=== PATIENT | female | born 1950 | race Caucasian/White ===

== ENCOUNTER 2023-08-05 06:26 | Day surgery (SDC) | payer MEDICARE ==
[2023-08-04 13:40] VITALS: BMI 27.4
[~2023-08-05 06:26] MED LIST: DEXTROSE 50% FS SCH; ENOXAPARIN FS SCH; EPINEPHRINE FS SCH; [UNRECOGNIZED DRUG - OTHER] FS SCH
[2023-08-05] MEDS ORDERED: PHENYLephrine 2.5% Ophth Soln 15 ml Bottle ONE (07:12)
[2023-08-05] MEDS ORDERED: Cyclopentolate 1% Opth Drop 2 ML BOT ONE (07:12)
== END 2023-08-05 07:55 | disposition short-term general hospital (02) ==
LOC: SDC 06:26
PROVIDERS: ATTEND Ophthalmology Retina Specialist
DX: H35.342 Macular cyst, hole, or pseudohole, left eye (principal); Z53.8 Procedure and treatment not carried out for other reasons
CPT/HCPCS: J0171; J1650

== ENCOUNTER 2023-08-05 08:04 | Inpatient (IN) | payer MEDICARE ==
[2023-08-05] MEDS ORDERED: Labetalol HCl 100 MG/20 ML VIAL ONE (08:37)
[2023-08-05 08:42] LABS: #Eosinphils 0.1 thou/uL (0.0-0.7); #Neutrophils 9.9 thou/uL (1.40-6.50); %Basophils 0.3 % (0.0-1.0); %Eosinophils 0.8 % (0.0-10.0); %Lymphocytes 15.8 % (21.0-51.0); %Monocytes 7.7 % (0.0-10.0); %Neutrophils 74.9 % (42.0-75.0); Hematocrit 47.5 % (36.0-47.0); Hemoglobin 15.4 g/dL (12.0-16.0); Mean Corpuscular HGB CONC 32.4 g/dL (32.0-36.0); Mean Corpuscular Volume 95.6 fl (78.0-98.0); Mean Platelet Volume 10.5 fL (7.4-10.4); Platelet Count 576 10x3/uL (130-400); RBC Distribution Width 15.8 % (11.5-14.5); Red Blood Cell (RBC) Count 4.97 mill/uL (4.20-5.40); White Blood Cell (WBC) Count 13.2 10x3/uL (4.8-10.8)
[2023-08-05 09:06] LABS: ALT (SGPT) 11 U/L (8-55); AST (SGOT) 17 U/L (5-34); Albumin 4.3 g/dL (3.4-4.8); Alkaline Phosphatase 67 U/L (40-110); Anion Gap 11 mmol/L (10-20); BUN (Urea Nitrogen) 13 mg/dL (9.8-20.1); Bilirubin, Total 0.4 mg/dL (0.2-1.2); Calc. Creatinine Clearance 0 mL/min (70-130); Carbon Dioxide 24 mmol/L (23-31); Chloride 105 mmol/L (98-107); Estimated GFR 68; Globulin 3.4 g/dL (2.4-3.5); Glucose 122 mg/dL (80-115); Protein, Total 7.7 g/dL (5.8-8.1); Sodium 136 mmol/L (136-145)
[2023-08-05 09:13] LABS: Troponin I 3.106 ng/mL (< 0.028)
[2023-08-05] MEDS ORDERED: Nitroglycerin 50 MG/250 ML BOT 250 ML ONE (09:27)
[2023-08-05] MEDS ORDERED: Aspirin Chewable 81 MG TAB ONE (09:27)
[2023-08-05] MEDS ORDERED: Heparin 25,000 units/D5W 500 ML ONE (09:27)
[2023-08-05 10:25] LABS: PTT 35.4 sec (22.9-36.1)
[2023-08-05] MEDS ORDERED: Acetaminophen 325 MG TAB PO PRN (10:54)
[2023-08-05] MEDS ORDERED: Heparin 25,000 units/D5W 500 ML IVPB SCH (11:15)
[2023-08-05] MEDS ORDERED: Nitroglycerin 50 MG/250 ML BOT 250 ML IVPB SCH (11:15)
[2023-08-05 11:29] LABS: Critical Call Chem Troponin I RESULT DECREASING; Troponin I 2.818 ng/mL (< 0.028)
[2023-08-05 14:28] LABS: Cardiac Risk 4.7 (Less than 4.5)
[2023-08-05 14:30] LABS: Hemoglobin A1c 5.4 % (4.0-6.0)
[2023-08-05 15:06] LABS: Critical Call Chem Troponin I RESULT DECREASING; Troponin I 2.629 ng/mL (< 0.028)
[2023-08-05] MEDS ORDERED: Lisinopril 20 MG TAB PO SCH (15:30)
[2023-08-05] MEDS ORDERED: Communication Order-Pharmacy FS SCH (18:30)
[2023-08-05] MEDS: Sodium Chloride 0.9% 1,000 ML IV SCH (19:05)
[2023-08-05] MEDS: Heparin 10,000 UNITS/ 10 ML VIAL SLOW IVP SCH (19:43)
[2023-08-05] MEDS: Rosuvastatin 20 MG TAB PO SCH (20:05)
[2023-08-05] MEDS: niCARdipine 25 MG in Sodium Chloride 0.9% 250 ML 250 ML IVPB SCH ×2 (20:17→22:21)
[2023-08-06] MEDS: Heparin 10,000 UNITS/ 10 ML VIAL SLOW IVP SCH ×3 (01:32→19:56)
[2023-08-06] MEDS: niCARdipine 25 MG in Sodium Chloride 0.9% 250 ML 250 ML IVPB SCH ×3 (01:32→21:49)
[2023-08-06 04:03] LABS: #Basophils 0.1 thou/uL (0.0-0.2); #Eosinphils 0.1 thou/uL (0.0-0.7); #Monocytes 1.2 thou/uL (0.11-0.59); #Neutrophils 11.3 thou/uL (1.40-6.50); %Basophils 0.4 % (0.0-1.0); %Eosinophils 0.3 % (0.0-10.0); %Lymphocytes 15.2 % (21.0-51.0); %Monocytes 8.2 % (0.0-10.0); %Neutrophils 75.6 % (42.0-75.0); Hematocrit 40.9 % (36.0-47.0); Hemoglobin 13.3 g/dL (12.0-16.0); Mean Corpuscular HGB CONC 32.5 g/dL (32.0-36.0); Mean Corpuscular Hemoglobin 30.6 pg (27.0-31.0); Mean Platelet Volume 10.6 fL (7.4-10.4); Platelet Count 485 10x3/uL (130-400); RBC Distribution Width 15.9 % (11.5-14.5); Red Blood Cell (RBC) Count 4.35 mill/uL (4.20-5.40)
[2023-08-06 04:23] LABS: Anion Gap 13 mmol/L (10-20); BUN (Urea Nitrogen) 8 mg/dL (9.8-20.1); Calc. Creatinine Clearance 83 mL/min (70-130); Calcium 8.7 mg/dL (7.8-10.44); Carbon Dioxide 22 mmol/L (23-31); Chloride 108 mmol/L (98-107); Estimated GFR 83; Glucose 134 mg/dL (80-115); Potassium 3.9 mmol/L (3.5-5.1); Sodium 139 mmol/L (136-145)
[2023-08-06] MEDS: Sodium Chloride 0.9% 1,000 ML IV SCH ×2 (04:51→14:42)
[2023-08-06] MEDS: Lisinopril 20 MG TAB PO SCH (08:01)
[2023-08-06] MEDS ORDERED: Lidocaine 1% (PF) 30 ML VIAL ONE (12:17)
[2023-08-06] MEDS ORDERED: Heparin 10,000 UNITS/ 10 ML VIAL ONE (12:17)
[2023-08-06] MEDS ORDERED: Verapamil 5 MG/2 ML VIAL ONE (12:17)
[2023-08-06] MEDS ORDERED: Nitroglycerin 50 MG/250 ML BOT 250 ML ONE (12:18)
[2023-08-06] MEDS ORDERED: fentaNYL 50 mcg/mL 1 mL Vial ONE (13:49)
[2023-08-06] MEDS ORDERED: Midazolam HCl 2 mg/2 ml Vial ONE (13:50)
[2023-08-06] MEDS: Rosuvastatin 20 MG TAB PO SCH (20:50)
[2023-08-06] MEDS ORDERED: Atorvastatin Calcium 20 MG TAB PO SCH (21:00)
[2023-08-06] MEDS: niCARdipine 50 MG, Admixture Fee 1 EACH in Sodium Chloride 0.9% 250 ML 230 ML IV SCH (23:49)
[2023-08-07] MEDS: niCARdipine 50 MG, Admixture Fee 1 EACH in Sodium Chloride 0.9% 250 ML 230 ML IV SCH (04:02)
[2023-08-07 04:08] LABS: #Basophils 0.1 thou/uL (0.0-0.2); #Monocytes 1.3 thou/uL (0.11-0.59); #Neutrophils 13.5 thou/uL (1.40-6.50); %Basophils 0.3 % (0.0-1.0); %Eosinophils 0.1 % (0.0-10.0); %Lymphocytes 9.5 % (21.0-51.0); %Monocytes 7.6 % (0.0-10.0); Hematocrit 42.8 % (36.0-47.0); Hemoglobin 13.8 g/dL (12.0-16.0); Mean Corpuscular HGB CONC 32.2 g/dL (32.0-36.0); Mean Corpuscular Hemoglobin 30.4 pg (27.0-31.0); Mean Corpuscular Volume 94.3 fl (78.0-98.0); Mean Platelet Volume 10.9 fL (7.4-10.4); Platelet Count 475 10x3/uL (130-400); RBC Distribution Width 16.1 % (11.5-14.5); Red Blood Cell (RBC) Count 4.54 mill/uL (4.20-5.40); White Blood Cell (WBC) Count 16.5 10x3/uL (4.8-10.8)
[2023-08-07 04:32] LABS: ALT (SGPT) 10 U/L (8-55); AST (SGOT) 13 U/L (5-34); Albumin 3.6 g/dL (3.4-4.8); Alkaline Phosphatase 56 U/L (40-110); Anion Gap 13 mmol/L (10-20); BUN (Urea Nitrogen) 8 mg/dL (9.8-20.1); Bilirubin, Total 0.8 mg/dL (0.2-1.2); Calc. Creatinine Clearance 89 mL/min (70-130); Calcium 8.6 mg/dL (7.8-10.44); Carbon Dioxide 20 mmol/L (23-31); Chloride 110 mmol/L (98-107); Estimated GFR 88; Globulin 2.9 g/dL (2.4-3.5); Glucose 127 mg/dL (80-115); Potassium 3.6 mmol/L (3.5-5.1); Protein, Total 6.5 g/dL (5.8-8.1); Sodium 139 mmol/L (136-145)
[2023-08-07 05:53] VITALS: BMI 28.8
[2023-08-07] MEDS ORDERED: Labetalol HCl 100 MG/20 ML VIAL SLOW IVP PRN (07:37)
[2023-08-07] MEDS: Lisinopril 20 MG TAB PO SCH (08:04)
[2023-08-07] MEDS: Aspirin Chewable 81 MG TAB PO SCH (08:04)
[2023-08-07] MEDS ORDERED: Carvedilol 3.125 MG TAB PO SCH ×2 (09:00→17:00)
[2023-08-07] MEDS ORDERED: Aspirin 81 mg Enteric Coated Tablet PO SCH (09:00)
[2023-08-07] MEDS ORDERED: NIFEdipine XL 30 MG ER.TAB PO SCH (09:00)
[2023-08-07] MEDS ORDERED: Atorvastatin Calcium 40 MG TAB PO SCH (21:00)
[2023-08-08 05:23] LABS: #Basophils 0.1 thou/uL (0.0-0.2); #Eosinphils 0.1 thou/uL (0.0-0.7); #Monocytes 1.3 thou/uL (0.11-0.59); #Neutrophils 9.4 thou/uL (1.40-6.50); %Basophils 0.4 % (0.0-1.0); %Lymphocytes 17.8 % (21.0-51.0); %Monocytes 9.9 % (0.0-10.0); %Neutrophils 70.4 % (42.0-75.0); Hematocrit 41.3 % (36.0-47.0); Hemoglobin 13.4 g/dL (12.0-16.0); Mean Corpuscular HGB CONC 32.4 g/dL (32.0-36.0); Mean Corpuscular Hemoglobin 31.1 pg (27.0-31.0); Mean Corpuscular Volume 95.8 fl (78.0-98.0); Mean Platelet Volume 11.1 fL (7.4-10.4); Platelet Count 519 10x3/uL (130-400); RBC Distribution Width 16.1 % (11.5-14.5); Red Blood Cell (RBC) Count 4.31 mill/uL (4.20-5.40); White Blood Cell (WBC) Count 13.4 10x3/uL (4.8-10.8)
[2023-08-08 05:52] LABS: Anion Gap 12 mmol/L (10-20); BUN (Urea Nitrogen) 14 mg/dL (9.8-20.1); Calc. Creatinine Clearance 78 mL/min (70-130); Calcium 9.2 mg/dL (7.8-10.44); Carbon Dioxide 23 mmol/L (23-31); Chloride 108 mmol/L (98-107); Estimated GFR 75; Glucose 109 mg/dL (80-115); Potassium 3.1 mmol/L (3.5-5.1); Sodium 140 mmol/L (136-145)
[2023-08-08] MEDS: Lisinopril 20 MG TAB PO SCH (07:29)
[2023-08-08] MEDS: Aspirin Chewable 81 MG TAB PO SCH (07:29)
[2023-08-08] MEDS ORDERED: Potassium Chloride 20 MEQ TAB PO SCH (08:00)
[2023-08-08] MEDS ORDERED: Amlodipine 5 MG TAB PO SCH (10:45)
[2023-08-08 12:02] VITALS: TEMP 98.8
[2023-08-08 13:27] VITALS: BP 161/107
[2023-08-09] MEDS ORDERED: Amlodipine 5 MG TAB PO SCH (09:00)
== END 2023-08-08 15:20 | disposition home or self-care (01) | DRG 281 ==
LOC: ERS 08:04 → CCU 10:31
PROVIDERS: ADMIT Emergency Medicine; ATTEND Emergency Medicine
PROC: 4A023N7 Measurement of Cardiac Sampling and Pressure, Left Heart, Percutaneous Approach (ICD-10-PCS; principal; 2023-08-05)
PROC: B2151ZZ Fluoroscopy of Left Heart using Low Osmolar Contrast (ICD-10-PCS; 2023-08-05)
PROC: B2111ZZ Fluoroscopy of Multiple Coronary Arteries using Low Osmolar Contrast (ICD-10-PCS; 2023-08-05)
DX: I21.4 Non-ST elevation (NSTEMI) myocardial infarction (principal); I16.1 Hypertensive emergency; I25.10 Atherosclerotic heart disease of native coronary artery without angina pectoris; F10.90 Alcohol use, unspecified, uncomplicated; I45.10 Unspecified right bundle-branch block; Z66 Do not resuscitate; I34.0 Nonrheumatic mitral (valve) insufficiency; E11.9 Type 2 diabetes mellitus without complications; F17.210 Nicotine dependence, cigarettes, uncomplicated; H33.322 Round hole, left eye; R77.8 Other specified abnormalities of plasma proteins; Z88.5 Allergy status to narcotic agent; Z90.89 Acquired absence of other organs; Z71.6 Tobacco abuse counseling
CPT/HCPCS: 36140; 36415; 71045; 80048; 80053; 80061; 83036; 84443; 84484; 85025; 85610; 85730; 93005; 93010; 93306; 93458; 93798; 94760; 96365; 96367; 96375; 96376; 99152; C1769; C1894; J1644; J2001; J2250; J3010; J7050

== ENCOUNTER 2023-08-23 10:31 | Outpatient (CLI) | payer MEDICARE ==
[2023-08-23 12:28] LABS: Hemoglobin 15.6 g/dL (12.0-15.5); Mean Corpuscular HGB CONC 32.5 g/dL (32.0-36.0); Mean Corpuscular Hemoglobin 30.6 pg (27.0-33.0); Mean Corpuscular Volume 94.3 fl (81.6-98.3); Mean Platelet Volume 11.3 fl (7.4-10.4); Platelet Count 589 10x3/uL (150-450); Red Blood Cell (RBC) Count 5.09 10x6/uL (3.90-5.03); White Blood Cell (WBC) Count 11.2 10x3/uL (3.5-10.5)
[2023-08-23 13:09] LABS: Anion Gap 16 mmol/L (10-20); BUN (Urea Nitrogen) 11 mg/dL (9.8-20.1); Calc. Creatinine Clearance 0 mL/min (70-130); Calcium 9.9 mg/dL (7.8-10.44); Carbon Dioxide 21 mmol/L (23-31); Chloride 107 mmol/L (98-107); Estimated GFR 74; Glucose 120 mg/dL (80-115); Potassium 4.9 mmol/L (3.5-5.1); Sodium 139 mmol/L (136-145)
== END 2023-08-23 10:32 | disposition home or self-care (01) ==
LOC: LABBT 10:31
PROVIDERS: ATTEND Thoracic Surgery (Cardiothoracic Vascular Surgery)
DX: Z01.812 Encounter for preprocedural laboratory examination (principal); I25.10 Atherosclerotic heart disease of native coronary artery without angina pectoris
CPT/HCPCS: 80048; 85027

== ENCOUNTER 2023-08-23 11:00 | Inpatient (IN) | payer MEDICARE ==
[2023-08-24] MEDS ORDERED: Albumin 5% 500 ML ONE (06:33)
[2023-08-24] MEDS ORDERED: Bupivacaine PF 0.5% 30 ML VIAL ONE (06:33)
[2023-08-24] MEDS ORDERED: Dexamethasone 4 mg/ml Vial ONE (06:33)
[2023-08-24] MEDS ORDERED: EPINEPHrine 1 MG/ML VIAL ONE (06:33)
[2023-08-24] MEDS ORDERED: PHENYLEPHRINE-NS 100 MCG/ML 10 ML SYRINGE ONE ×3 (06:33→07:01)
[2023-08-24] MEDS ORDERED: Heparin 10,000 UNITS/1 ML VIAL 30,000 UNITS in Sodium Chloride 0.9% 1,000 ML FS SCH (06:45)
[2023-08-24] MEDS ORDERED: Midazolam HCl 2 mg/2 ml Vial ONE ×2 (06:57→06:58)
[2023-08-24] MEDS ORDERED: fentaNYL PF 100 MCG/2 ML SYRINGE ONE (06:58)
[2023-08-24] MEDS ORDERED: Dexmedetomidine 200 MCG/2 ML VIAL ONE ×2 (06:58→07:00)
[2023-08-24] MEDS ORDERED: Ondansetron PF 4 MG/2 ML Vial ONE (07:00)
[2023-08-24] MEDS ORDERED: Lidocaine 1% PF 5 ML VIAL ONE ×2 (07:00→07:41)
[2023-08-24] MEDS ORDERED: Glycopyrrolate 0.2 MG/ML 5 ML SYRINGE ONE (07:01)
[2023-08-24] MEDS ORDERED: Sodium Chloride 0.9% 100 ML ONE (07:14)
[2023-08-24] MEDS ORDERED: CEFAZOLIN 2 GM VIAL ONE (07:14)
[2023-08-24] MEDS ORDERED: Thrombin 5000 UNITS/5 ML VIAL ONE (07:41)
[2023-08-24] MEDS ORDERED: Aminocaproic Acid 5 GM/20 ML VIAL ONE (07:41)
[2023-08-24] MEDS ORDERED: Sodium Bicarb 50 MEQ/50 ML VIAL ONE (07:41)
[2023-08-24] MEDS ORDERED: Nitroglycerin 50 MG/250 ML BOT ONE (07:41)
[2023-08-24] MEDS ORDERED: Magnesium 5 GM/10 ML VIAL ONE (07:41)
[2023-08-24] MEDS ORDERED: Papaverine 60 MG/2 ML VIAL ONE (07:41)
[2023-08-24] MEDS ORDERED: Norepinephrine 4 MG/4 ML VIAL ONE (07:41)
[2023-08-24] MEDS ORDERED: Vancomycin 1 GM VIAL ONE ×2 (07:41→10:16)
[2023-08-24] MEDS ORDERED: Heparin 30,000 units/30 ml VIAL ONE (07:41)
[2023-08-24] MEDS ORDERED: Vecuronium 10 MG VIAL ONE (07:41)
[2023-08-24] MEDS ORDERED: Potassium Chloride 60 MEQ/30 ML VIAL ONE (07:41)
[2023-08-24] MEDS ORDERED: Heparin 5,000 UNITS/ML VIAL ONE ×2 (07:41→09:36)
[2023-08-24] MEDS ORDERED: PROPOFOL 200 MG/20 ML VIAL ONE (07:41)
[2023-08-24] MEDS ORDERED: Lidocaine 2% PF 100 mg/5 ml Syringe ONE (07:41)
[2023-08-24] MEDS ORDERED: Mannitol 12.5 GM/50 ML ONE (07:41)
[2023-08-24] MEDS ORDERED: Protamine Sulfate 250 MG/25 ML VIAL ONE (07:41)
[2023-08-24] MEDS ORDERED: Cardioplegic Soln 1,000 ML BAG ONE (07:41)
[2023-08-24] MEDS ORDERED: Dexamethasone 20 MG/5 ML VIAL ONE (07:41)
[2023-08-24] MEDS ORDERED: Calcium Chloride 1 GM/10 ML Abboject SYRINGE ONE (07:41)
[2023-08-24] MEDS ORDERED: Lidocaine 1% MPF 2 ML VIAL ONE (07:43)
[2023-08-24 11:22] LABS: Base Excess (BEa) -9.4 mEq/L (-2.0 to +3.0); CO2 Tension 44.9 mmHg (35.0-45.0); Calcium, Ionized (arterial) 1.22 mmol/L (1.12-1.30); Carboxyhemoglobin (COHb) 0.9 gm% (0.0-3.0); Hematocrit-ABG 39 % (36.0-47.0); Hemoglobin (Hb) 13.2 g/dL (12.0-16.0); O2 Tension (PaO2), arterial 71.6 mmHg (> 70.0); Potassium - ABG Lab 4.16 mmol/L (3.70-5.30); pH, Arterial 7.222 (7.35-7.45)
[2023-08-24 11:28] LABS: ALV-art Gradient 300.075 mmHg (0-20); Puncture Site Arterial Line
[2023-08-24] MEDS ORDERED: Ondansetron PF 4 MG/2 ML Vial IVP PRN (12:12)
[2023-08-24] MEDS ORDERED: Bisacodyl 10 MG SUPP PR PRN (12:12)
[2023-08-24] MEDS ORDERED: D5 1/2 NS w/20 mEq KCL 1,000 ML IV SCH (12:12)
[2023-08-24] MEDS ORDERED: Nitroglycerin 50 MG/250 ML BOT 250 ML IVPB PRN (12:12)
[2023-08-24] MEDS ORDERED: fentaNYL 50 mcg/mL 1 mL Vial SLOW IVP PRN ×2 (12:12)
[2023-08-24] MEDS ORDERED: Potassium Chloride 20 MEQ/100 ML PREMIX BAG IVPB PRN (12:12)
[2023-08-24] MEDS ORDERED: traMADol HCl 50 MG TAB PO PRN ×2 (12:12)
[2023-08-24] MEDS ORDERED: hydrALAZINE 20 MG/ML VIAL SLOW IVP PRN (12:12)
[2023-08-24] MEDS ORDERED: Guaifenesin DM 100-10/5 ML UDCUP PO PRN (12:12)
[2023-08-24] MEDS ORDERED: Ipratropium/Albuterol 3 ML NEB NEB PRN (12:12)
[2023-08-24] MEDS ORDERED: Mag-Al 1200 mg/1200 mg/30 ML UDCUP PO PRN (12:12)
[2023-08-24] MEDS ORDERED: Bisacodyl 5 MG TAB PO PRN (12:12)
[2023-08-24] MEDS ORDERED: NOREPINEPHRINE 8 MG/250 ML-D5W 250 ML IVPB PRN (12:12)
[2023-08-24] MEDS ORDERED: Hetastarch 6% 500 ML 500 ML IVPB PRN (12:12)
[2023-08-24] MEDS ORDERED: Morphine 2 MG/ML VIAL SLOW IVP PRN (12:12)
[2023-08-24] MEDS ORDERED: Acetaminophen 325 MG TAB PO PRN (12:12)
[2023-08-24] MEDS ORDERED: Magnesium 2 GM/50 ML(in water) 2 GM in Premix 1 BAG IVPB SCH (12:12)
[2023-08-24 12:33] LABS: Hematocrit 39.2 % (36.0-47.0); Hemoglobin 12.4 g/dL (12.0-16.0); Mean Corpuscular HGB CONC 31.6 g/dL (32.0-36.0); Mean Corpuscular Hemoglobin 31.2 pg (27.0-31.0); Mean Corpuscular Volume 98.5 fl (78.0-98.0); Mean Platelet Volume 11.5 fL (7.4-10.4); Platelet Count 424 10x3/uL (130-400); Red Blood Cell (RBC) Count 3.98 mill/uL (4.20-5.40); White Blood Cell (WBC) Count 36.5 10x3/uL (4.8-10.8)
[2023-08-24 12:34] LABS: Manual Diff?? YES
[2023-08-24 12:35] LABS: Delete Auto Diff?? YES
[2023-08-24] MEDS: Ipratropium/Albuterol 3 ML NEB NEB SCH ×2 (12:40→18:37)
[2023-08-24] MEDS: Insulin Regular 300 UNITS/3 ML VIAL SC PRN ×3 (12:44→20:10)
[2023-08-24 12:45] LABS: INR-International Normal Ratio 1.3; Prothrombin Time 16.4 sec (12.0-14.7)
[2023-08-24] MEDS ORDERED: Dextrose 50% Abboject 50 ML SYRINGE SLOW IVP PRN (12:45)
[2023-08-24] MEDS ORDERED: Dextrose 5% in Water 1,000 ML IV PRN (12:45)
[2023-08-24] MEDS ORDERED: Glucagon 1 MG/ML KIT SC PRN (12:45)
[2023-08-24 12:46] LABS: PTT 34.6 sec (22.9-36.1)
[2023-08-24 13:00] LABS: Anisocytosis SLIGHT = 6-15 cells HPF (0-5); Band 23 % (5-11); CellaVision Operator ID LAB.MJL; Eosinophils 1 % (0-10); Large Platelets 3.9 % (0-5); Lymphocytes 5 % (21-51); Metamyelocyte 2 % (0-0); Neutrophil 69 % (42-75); Platelet Adequacy Comment Platelets Increased; Polychromasia SLIGHT = 2-3 cells HPF (0-2); Total Cell Count 103
[2023-08-24 13:01] VITALS: BMI 27.8
[2023-08-24 13:14] LABS: Anion Gap 12 mmol/L (10-20); BUN (Urea Nitrogen) 10 mg/dL (9.8-20.1); Calc. Creatinine Clearance 72 mL/min (70-130); Calcium 7.9 mg/dL (7.8-10.44); Carbon Dioxide 18 mmol/L (23-31); Chloride 110 mmol/L (98-107); Estimated GFR 74; Glucose 177 mg/dL (80-115); Potassium 4.3 mmol/L (3.5-5.1); Sodium 136 mmol/L (136-145)
[2023-08-24] MEDS: Ketorolac Tromethamine 30 MG/ML VIAL IVP SCH ×2 (13:49→19:32)
[2023-08-24] MEDS: CEFAZOLIN 2 GM in Sodium Chloride 0.9% 100 ML IVPB SCH ×2 (15:52→23:13)
[2023-08-24 16:48] LABS: Hematocrit 39.1 % (36.0-47.0); Hemoglobin 12.5 g/dL (12.0-16.0)
[2023-08-24 16:59] LABS: Actual Bicarbonate (HCO3a) 21.1 mEq/L (22-28); Base Excess (BEa) -4.8 mEq/L (-2.0 to +3.0); CO2 Tension 42.2 mmHg (35.0-45.0); Calcium, Ionized (arterial) 1.19 mmol/L (1.12-1.30); Carboxyhemoglobin (COHb) 0.6 gm% (0.0-3.0); Hematocrit-ABG 39 % (36.0-47.0); Hemoglobin (Hb) 13.4 g/dL (12.0-16.0); O2 Tension (PaO2), arterial 65.3 mmHg (> 70.0); Potassium - ABG Lab 4.12 mmol/L (3.70-5.30); pH, Arterial 7.317 (7.35-7.45)
[2023-08-24 17:06] LABS: Puncture Site Arterial Line
[2023-08-24] MEDS ORDERED: Famotidine/PF 20 mg/2ml Vial SLOW IVP SCH (21:00)
[2023-08-24] MEDS: Atorvastatin Calcium 40 MG TAB PO SCH (21:16)
[2023-08-25] MEDS: Insulin Regular 300 UNITS/3 ML VIAL SC PRN ×2 (00:06→03:51)
[2023-08-25] MEDS: Ketorolac Tromethamine 30 MG/ML VIAL IVP SCH ×4 (00:34→19:19)
[2023-08-25] MEDS: Ipratropium/Albuterol 3 ML NEB NEB SCH ×4 (02:07→18:49)
[2023-08-25 05:00] LABS: Hematocrit 36.2 % (36.0-47.0); Hemoglobin 11.5 g/dL (12.0-16.0); Mean Corpuscular HGB CONC 31.8 g/dL (32.0-36.0); Mean Corpuscular Hemoglobin 30.4 pg (27.0-31.0); Mean Corpuscular Volume 95.8 fl (78.0-98.0); Mean Platelet Volume 12.1 fL (7.4-10.4); Platelet Count 368 10x3/uL (130-400); RBC Distribution Width 16.2 % (11.5-14.5); Red Blood Cell (RBC) Count 3.78 mill/uL (4.20-5.40); White Blood Cell (WBC) Count 25.8 10x3/uL (4.8-10.8)
[2023-08-25 05:21] LABS: Anion Gap 13 mmol/L (10-20); BUN (Urea Nitrogen) 11 mg/dL (9.8-20.1); Calc. Creatinine Clearance 73 mL/min (70-130); Calcium 8.2 mg/dL (7.8-10.44); Carbon Dioxide 21 mmol/L (23-31); Chloride 109 mmol/L (98-107); Estimated GFR 75; Glucose 154 mg/dL (80-115); Potassium 4.5 mmol/L (3.5-5.1); Sodium 138 mmol/L (136-145)
[2023-08-25 05:22] LABS: Delete Auto Diff?? YES; Manual Diff?? YES
[2023-08-25 06:03] LABS: Anisocytosis SLIGHT = 6-15 cells HPF (0-5); Band 1 % (5-11); CellaVision Operator ID lab.sh2; Lymphocytes 1 % (21-51); Macrocytosis SLIGHT = 6-15 cells HPF (0-5); Monocytes 7 % (0-10); Neutrophil 91 % (42-75); Platelet Adequacy Comment Platelets Normal; Polychromasia SLIGHT = 2-3 cells HPF (0-2); Total Cell Count 100
[2023-08-25] MEDS: CEFAZOLIN 2 GM in Sodium Chloride 0.9% 100 ML IVPB SCH (06:59)
[2023-08-25] MEDS: Carvedilol 3.125 MG TAB PO SCH ×2 (08:22→17:05)
[2023-08-25] MEDS: Aspirin 325 MG TAB PO SCH (08:22)
[2023-08-25] MEDS: Magnesium 2 GM/50 ML(in water) 2 GM in Premix 1 BAG IVPB SCH (08:23)
[2023-08-25] MEDS ORDERED: Mineral Oil ENEMA PR PRN (18:20)
[2023-08-25] MEDS ORDERED: Nitroglycerin 0.4 MG TAB (25 Tab Bottle) SL PRN (18:20)
[2023-08-25] MEDS ORDERED: diphenhydrAMINE 25 MG CAP PO PRN (18:20)
[2023-08-25] MEDS ORDERED: Artificial Tear Sol 15 ML BOT EA EYE PRN (18:20)
[2023-08-25] MEDS ORDERED: Bisacodyl 5 MG TAB PO PRN (18:20)
[2023-08-25] MEDS ORDERED: Bisacodyl 10 MG SUPP PR PRN (18:20)
[2023-08-25] MEDS ORDERED: Guaifenesin DM 100-10/5 ML UDCUP PO PRN (18:20)
[2023-08-25] MEDS ORDERED: Milk Of Magnesia 30 ML UDCUP PO PRN (18:20)
[2023-08-25] MEDS ORDERED: Zolpidem Tartrate 5 MG TAB PO PRN (18:20)
[2023-08-25] MEDS ORDERED: Mag-Al 1200 mg/1200 mg/30 ML UDCUP PO PRN (18:20)
[2023-08-25] MEDS: Atorvastatin Calcium 40 MG TAB PO SCH (20:44)
[2023-08-26] MEDS: Ipratropium/Albuterol 3 ML NEB NEB SCH ×5 (00:01→23:06)
[2023-08-26] MEDS: Ketorolac Tromethamine 30 MG/ML VIAL IVP SCH ×4 (00:43→17:24)
[2023-08-26] MEDS: Magnesium 2 GM/50 ML(in water) 2 GM in Premix 1 BAG IVPB SCH (07:54)
[2023-08-26] MEDS: Furosemide 40 MG TAB PO SCH (07:54)
[2023-08-26] MEDS: Carvedilol 3.125 MG TAB PO SCH (07:54)
[2023-08-26] MEDS: Aspirin 325 MG TAB PO SCH (07:54)
[2023-08-26] MEDS: Potassium Chloride 10 MEQ TAB PO SCH (07:54)
[2023-08-26] MEDS ORDERED: Carvedilol 3.125 MG TAB PO SCH (12:07)
[2023-08-26] MEDS ORDERED: Carvedilol 6.25 MG TAB PO SCH ×2 (12:30→17:00)
[2023-08-26] MEDS: Atorvastatin Calcium 40 MG TAB PO SCH (21:18)
[2023-08-27] MEDS: Ketorolac Tromethamine 30 MG/ML VIAL IVP SCH ×3 (01:08→11:37)
[2023-08-27] MEDS: Ipratropium/Albuterol 3 ML NEB NEB SCH ×2 (07:53→13:42)
[2023-08-27] MEDS ORDERED: Amlodipine 5 MG TAB PO SCH (09:00)
[2023-08-27] MEDS ORDERED: Lisinopril 5 MG TAB PO SCH (09:00)
[2023-08-27] MEDS: Furosemide 40 MG TAB PO SCH (09:07)
[2023-08-27] MEDS: Aspirin 325 MG TAB PO SCH (09:08)
[2023-08-27] MEDS: Carvedilol 6.25 MG TAB PO SCH ×2 (09:08→17:06)
[2023-08-27] MEDS: Potassium Chloride 10 MEQ TAB PO SCH (09:11)
[2023-08-27 16:21] VITALS: BP 155/78; TEMP 97.9
[2023-08-28] MEDS ORDERED: Lisinopril 10 MG TAB PO SCH (09:00)
== END 2023-08-27 18:45 | disposition home or self-care (01) | DRG 236 ==
LOC: SURG A 08-24 06:12 → CCU 08-24 11:03 → 2NO 08-25 18:20
PROVIDERS: ADMIT Thoracic Surgery (Cardiothoracic Vascular Surgery); ATTEND Thoracic Surgery (Cardiothoracic Vascular Surgery)
PROC: 021109W Bypass Coronary Artery, Two Arteries from Aorta with Autologous Venous Tissue, Open Approach (ICD-10-PCS; principal; 2023-08-24)
PROC: 02100Z9 Bypass Coronary Artery, One Artery from Left Internal Mammary, Open Approach (ICD-10-PCS; 2023-08-24)
PROC: 06BQ4ZZ Excision of Left Saphenous Vein, Percutaneous Endoscopic Approach (ICD-10-PCS; 2023-08-24)
PROC: 02L70CK Occlusion of Left Atrial Appendage with Extraluminal Device, Open Approach (ICD-10-PCS; 2023-08-24)
PROC: 4A133R1 Monitoring of Arterial Saturation, Peripheral, Percutaneous Approach (ICD-10-PCS; 2023-08-24)
PROC: 3E033XZ Introduction of Vasopressor into Peripheral Vein, Percutaneous Approach (ICD-10-PCS; 2023-08-24)
PROC: 30233J1 Transfusion of Nonautologous Serum Albumin into Peripheral Vein, Percutaneous Approach (ICD-10-PCS; 2023-08-24)
DX: I25.10 Atherosclerotic heart disease of native coronary artery without angina pectoris (principal); I10 Essential (primary) hypertension; H35.30 Unspecified macular degeneration; Z79.899 Other long term (current) drug therapy; Z95.5 Presence of coronary angioplasty implant and graft; F17.210 Nicotine dependence, cigarettes, uncomplicated; E11.9 Type 2 diabetes mellitus without complications; Z79.82 Long term (current) use of aspirin; Z88.5 Allergy status to narcotic agent; E78.5 Hyperlipidemia, unspecified
CPT/HCPCS: 36416; 36430; 71045; 80048; 82805; 85025; 85027; 85610; 85730; 86850; 86900; 86901; 93005; 93010; 93798; 94002; 94150; 94640; 97139; A4311; C1751; J0171; J1100; J1642; J1644; J1815; J1885; J2001; J2150; J2250; J2405; J2440; J2704; J2720; J3370; J3475; J3480; J3490; J7620; P9045; S0017; S0020; S0028

== ENCOUNTER 2024-08-03 06:25 | Day surgery (SDC) | payer MEDICARE ==
[2024-08-02 13:07] VITALS: BMI 28.3
[~2024-08-03 06:25] MED LIST changes: -DEXTROSE 50% FS SCH; -ENOXAPARIN FS SCH; -EPINEPHRINE FS SCH; +EPINEPHrine 0.3 MG in Ophthalmic Irrigation Solution 500 ML IRR SCH; -[UNRECOGNIZED DRUG - OTHER] FS SCH
[2024-08-03] MEDS ORDERED: PHENYLephrine 2.5% Ophth Soln 15 ml Bottle ONE (06:57)
[2024-08-03] MEDS ORDERED: Cyclopentolate 1% Opth Drop 2 ML BOT ONE (06:57)
[2024-08-03] MEDS ORDERED: fentaNYL 50 mcg/mL 1 mL Vial ONE ×2 (07:48→07:58)
[2024-08-03] MEDS ORDERED: PROPOFOL 20 ML ONE (07:48)
[2024-08-03] MEDS ORDERED: Midazolam HCl 2 mg/2 ml Vial ONE (07:49)
[2024-08-03] MEDS ORDERED: Ondansetron PF 4 MG/2 ML Vial ONE (07:59)
[2024-08-03] MEDS ORDERED: GLYCOPYRROLATE/PF 0.2 MG/ML VIAL ONE (08:05)
[2024-08-03] MEDS ORDERED: Indocyanine Green 25 MG/10 ML VIAL ONE (08:15)
[2024-08-03] MEDS ORDERED: Maxitrol 0.1% Opth Oint 3.5 GM TUBE ONE (08:15)
[2024-08-03] MEDS ORDERED: CEFAZOLIN 1 GM VIAL ONE (08:15)
[2024-08-03] MEDS ORDERED: Bupivacaine 0.75% 10 ML VIAL ONE (08:15)
[2024-08-03] MEDS ORDERED: Triamcinolone 40 MG/ML VIAL ONE (08:15)
[2024-08-03] MEDS ORDERED: Lidocaine 1% PF 5 ML VIAL ONE (08:15)
[2024-08-03] MEDS ORDERED: Lidocaine 4% PF 5 ML AMP ONE (08:15)
== END 2024-08-03 09:25 | disposition home or self-care (01) ==
LOC: SDC 06:25
PROVIDERS: ATTEND Ophthalmology Retina Specialist
PROC: 08T53ZZ Resection of Left Vitreous, Percutaneous Approach (ICD-10-PCS; principal; 2024-08-03)
DX: H35.342 Macular cyst, hole, or pseudohole, left eye (principal); I10 Essential (primary) hypertension; E78.5 Hyperlipidemia, unspecified; I25.10 Atherosclerotic heart disease of native coronary artery without angina pectoris; Z95.1 Presence of aortocoronary bypass graft; F17.200 Nicotine dependence, unspecified, uncomplicated; Z98.51 Tubal ligation status; Z88.5 Allergy status to narcotic agent; Z98.890 Other specified postprocedural states; Z90.89 Acquired absence of other organs
CPT/HCPCS: 67025; 67042; J0171; J2250; J2405; J2704; J3010; J3490; J0690; J3301

== ENCOUNTER 2025-07-23 10:58 | Outpatient (CLI) | payer MEDICARE | END 2025-07-23 10:59 | disposition home or self-care (01) | LOC: BICCT 10:58 | PROVIDERS: ATTEND Internal Medicine | DX: Z12.2 Encounter for screening for malignant neoplasm of respiratory organs (principal); F17.210 Nicotine dependence, cigarettes, uncomplicated; R91.8 Other nonspecific abnormal finding of lung field | CPT/HCPCS: 71271 ==

== ENCOUNTER 2025-08-08 11:00 | Outpatient (CLI) | payer MEDICARE | END 2025-08-08 11:01 | disposition home or self-care (01) | LOC: PET 11:00 | PROVIDERS: ATTEND Internal Medicine | DX: Z12.2 Encounter for screening for malignant neoplasm of respiratory organs (principal); D75.838 Other thrombocytosis; D75.1 Secondary polycythemia; D50.8 Other iron deficiency anemias; R91.8 Other nonspecific abnormal finding of lung field | CPT/HCPCS: 78815; A9552 ==